=== PATIENT | male | born 1935 | race Caucasian/White ===

== ENCOUNTER 2017-11-07 11:30 | Emergency (ER) | payer MEDICARE, OTHER ==
[~2017-11-07] VITALS: Ht 167.6 cm; Wt 61.7 kg
[~2017-11-07 11:30] MED LIST: ADVAIR; ALBUTEROL; ASPIRIN EC325 M1; CLONIDINE0.1; FINASTERIDE5 MG; GEMFIBROZIL 60600 MG; HYZAAR 100-251 EACH; NASAL SPRAY; NIASPAN ER 101000 M1; OMEPRAZOLE 20 M20 M1
[2017-11-07] MEDS ORDERED: ZANTAC 150MG T150 MG PO (11:47)
[2017-11-07] MEDS ORDERED: MEDROLDOSEPACK PO (12:42)
[2017-11-07] MEDS ORDERED: ULTRAM 50MG TAB50 MG PO (12:42)
[2017-11-07 13:19] VITALS: BP 150/53
== END 2017-11-07 13:20 | disposition home or self-care (01) ==
LOC: M.ERS 11:30
DX: M51.16 Intervertebral disc disorders with radiculopathy, lumbar region (principal); I10 Essential (primary) hypertension; J44.9 Chronic obstructive pulmonary disease, unspecified; K21.9 Gastro-esophageal reflux disease without esophagitis; Z91.040 Latex allergy status

== ENCOUNTER 2018-09-09 18:06 | Emergency (ER) | payer MEDICARE, OTHER ==
[~2018-09-09] VITALS: Ht 167.6 cm; Wt 64.6 kg
[~2018-09-09 18:06] MED LIST changes: +MEDROLDOSEPACK PO; +ULTRAM 50MG TAB50 MG PO; +ZANTAC 150MG T150 MG PO
[2018-09-09] MEDS ORDERED: EVOXAC30 MG PO (18:16)
[2018-09-09 18:35] LABS: ABSOLUTE BASOPHILS 0.1 thou/uL (0.0-0.2); ABSOLUTE EOSINOPHILS 0.1 thou/uL (0.0-0.7); ABSOLUTE LYMPHOCYTES 1.1 thou/uL (0.8-5.3); ABSOLUTE MONOCYTES 0.5 thou/uL (0.0-1.2); ABSOLUTE NEUTROPHILS 7.6 thou/uL (1.6-8.1); BASOPHILS 0.6 %; EOSINOPHILS 0.6 %; HEMATOCRIT 39.9 % (42.0-52.0); HEMOGLOBIN 13.8 gm/dL (14.0-18.0); LYMPHOCYTES 11.7 %; MCH 30.7 pg (26.0-34.0); MCHC 34.6 g/dL (28.0-37.0); MCV 88.6 fL (80.0-100.0); MPV 8.2 fl. (7.2-11.1); NUCLEATED RBCS 0 /100WBC; PLATELET COUNT* 262 thou/uL (150-400); POLYS 82.1 %; WBC 9.3 thou/uL (4.0-11.0)
[2018-09-09 18:43] LABS: APTT 25.1 Seconds (25.0-31.3); INR 0.9; PROTIME 9.6 Seconds (9.20-11.50)
[2018-09-09 18:53] LABS: ANION GAP 8 mmol/L (7-16); BUN 17 mg/dL (7-18); CALCIUM 8.8 mg/dL (8.5-10.1); CHLORIDE 104 mmol/L (98-107); CO2 28 mmol/L (21-32); CREATININE 1.2 mg/dL (0.6-1.3); GLUCOSE 116 mg/dL (70-99); POTASSIUM 4.1 mmol/L (3.5-5.1); SODIUM 140 mmol/L (136-145); TROPONIN-I LEVEL <0.06 ng/mL (<0.06)
[2018-09-09 18:56] LABS: ALBUMIN 3.7 g/dL (3.4-5.0); ALKALINE PHOSPHATASE 89 U/L (46-116); NT-PRO BRAIN NAT PEPTIDE 150 pg/mL (<300); SGOT 21 U/L (15-37); SGPT 25 U/L (30-65); TOTAL BILIRUBIN 0.4 mg/dL (<0.1-1.0); TOTAL PROTEIN 7.6 g/dL (6.4-8.2)
[2018-09-09 20:54] VITALS: BP 168/69
--- NOTE | 2018-09-10 12:08 | EKG ---
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: : 1935 Requested By: Alexandra Luna Order Number: [id number] MD: Mauricio Flor Measurements Intervals [place] Rate: 67 P: 6 W[place]: 202 QRS: 119 QRSD: 87 T: 137 QT: 366 QTc: 387 Interpretive Statements Sinus rhythm Right axis deviation Low voltage, extremity leads Abnormal T, consider ischemia, lateral leads Compared to ECG 11/07/2011 15:16:00 Right-axis deviation now present Low QRS voltage now present T-wave abnormality now present Possible ischemia now present Electronically Signed On 09-10-2018 12:07:47 CDT by Mauricio Flor [email or web address] <ELECTRONICALLY SIGNED> By: Mauricio Flor MD, FACC 09/10/18 1207 1814 181 Mauricio Flor MD, FAC /EPI
--- NOTE | 2018-09-12 14:06 | PATH ---
[address] [address] PATHOLOGY RPT PROCEDURE Name: LISA BRIDGES [id number] Admission: 09/09/18 Date of : 39 Discharge: 09/09/18 Report #: [id number] Path Case #: [id number] [facility] Accession Number: [id number] . 01 Material submitted: . gastrointestinal site - GE JUNCTION BIOPSY . 01 Clinical history: . None provided . 02 Diagnosis: GE junction biopsy: - Benign esophageal and gastric/columnar types mucosa with moderate chronic and active inflammation compatible with reflux, negative for goblet cells/diagnostic Kc's metaplasia, granulomas and dysplasia. (NELL:kale; 09/12/2018) MBR/09/12/2018 . 02 Electronically signed: . Vishal Fenton MD, Pathologist NPI- [id number] . 01 Gross description: . The specimen is received in formalin, labeled "Sarmad, Lisa, GE junction biopsy" and consists of 2 fragments of vines-kinsey tissue measuring 0.5 x 0.4 x 0.2 cm and 0.5 x 0.3 x 0.2 cm which are entirely submitted A1. (SDY; 09/11/2018) SYU/SYU . 02 Pathologist provided ICD-10: K21.9 . 02 CPT . 044621 Specimen Comment: A courtesy copy of this report has been sent to Specimen Comment: [phone], , . Specimen Comment: Report sent to ,DR STONE / DR MEYER Performed at: [address], [place], [place] [id number] MD Sky Jackson MD Phone: [phone] Performed at: [address] [address] [address] Antonio [place], [place] [id number] MD Vishal Fenton MD Phone: [phone]
== END 2018-09-09 20:54 | disposition still patient (30) ==
LOC: M.ERS 18:06 → M.GI 18:06
PROVIDERS: Nurse Practitioner Family
DX: T18.128A Food in esophagus causing other injury, initial encounter (principal); I10 Essential (primary) hypertension; J44.9 Chronic obstructive pulmonary disease, unspecified; K21.9 Gastro-esophageal reflux disease without esophagitis; E78.00 Pure hypercholesterolemia, unspecified; N40.0 Benign prostatic hyperplasia without lower urinary tract symptoms; Z91.040 Latex allergy status; X58.XXXA Exposure to other specified factors, initial encounter; Y93.89 Activity, other specified; Y92.89 Other specified places as the place of occurrence of the external cause; Y99.8 Other external cause status

== ENCOUNTER → 2019-02-08 | Outpatient (CLI) | payer MEDICARE, OTHER ==
[~2019-02-08] MED LIST changes: +EVOXAC30 MG PO
== END ==
LOC: M.RAD 12:56
DX: J44.9 Chronic obstructive pulmonary disease, unspecified (principal); Z87.09 Personal history of other diseases of the respiratory system

== ENCOUNTER → 2019-05-07 | Day surgery (SDC) | payer MEDICARE, OTHER ==
[~2019-05-07] MED LIST changes: +ARTIFICIAL TEAR1510 OPHTHALMIC; +BROVANA15 MCG/2 M INH; +BUDESONIDE0.25 MG/2 INH; +FLONASE 0.05%50 MCG NARES; +HYZAAR 50-12.51 EACH PO; +PROAIR RESPICL90 MCG INH; +ZANTAC 150MG T150 M1 PO
[2019-05-07 08:54] LABS: HEMATOCRIT 38.6 % (42.0-52.0); HEMOGLOBIN 13.2 gm/dL (14.0-18.0); MCHC 34.1 g/dL (28.0-37.0); MCV 90.8 fL (80.0-100.0); MPV 7.8 fl. (7.2-11.1); RBC 4.25 mil/uL (4.50-6.00); RDW-CV 12.9 % (10.5-14.5); WBC 6.2 thou/uL (4.0-11.0)
[2019-05-07 09:02] LABS: CREATININE 1.4 mg/dL (0.6-1.3); POTASSIUM 3.5 mmol/L (3.5-5.1)
[2019-05-07 09:15] LABS: ALBUMIN 3.8 g/dL (3.4-5.0); TOTAL BILIRUBIN 0.6 mg/dL (<0.1-1.0); TOTAL PROTEIN 7.4 g/dL (6.4-8.2)
--- NOTE | 2019-05-07 10:57 | EKG ---
[place] [address] ELECTROCARDIOGRAM REPORT Name: LISA BRIDGES Room: [facility]#: [id number] Admission: 05/07/19 Attend Phys: Miguel A Victoria MD Discharge: Date of : 39 Report #: [id number] THIS REPORT FOR: //name// 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 : 1935 Requested By: Miguel A Victoria Order Number: [id number] MD: Ketan Lee Measurements Intervals [place] Rate: 90 P: 75 [place]: 237 QRS: 68 QRSD: 85 T: QT: 364 QTc: 446 Interpretive Statements Sinus rhythm Prolonged [place] interval Borderline T wave abnormalities Compared to ECG 09/09/2018 18:14:52 First degree AV block now present Right-axis deviation no longer present Possible ischemia no longer present T-wave abnormality still present Electronically Signed On 05-07-2019 10:57:03 DEPUTY ASSESSOR by Ketan Lee [email or web address] <ELECTRONICALLY SIGNED> By: Ketan eLe MD, FACC 05/07/19 1057 0841 [id number] Ketan Lee MD, [facility] /EPI
== END | disposition home or self-care (01) ==
LOC: M.SUR 08:20
PROVIDERS: Internal Medicine Gastroenterology
DX: K22.2 Esophageal obstruction (principal); R13.19 Other dysphagia; K21.0 Gastro-esophageal reflux disease with esophagitis; K44.9 Diaphragmatic hernia without obstruction or gangrene; J44.9 Chronic obstructive pulmonary disease, unspecified; K21.9 Gastro-esophageal reflux disease without esophagitis; N18.9 Chronic kidney disease, unspecified; E78.5 Hyperlipidemia, unspecified; Z98.890 Other specified postprocedural states; Z87.891 Personal history of nicotine dependence; Z90.49 Acquired absence of other specified parts of digestive tract; Z79.899 Other long term (current) drug therapy; Z91.040 Latex allergy status

== ENCOUNTER 2020-01-27 18:42 | Emergency (ER) | payer MEDICARE, OTHER ==
[~2020-01-27] VITALS: Ht 167.6 cm; Wt 65.8 kg
[2020-01-27] MEDS ORDERED: PREDNISONE 20 M20 MG PO (19:11)
[2020-01-27] MEDS ORDERED: PEPCID20 MG PO (19:12)
[2020-01-27] MEDS ORDERED: CLARITIN10 MG PO (19:12)
[2020-01-27] MEDS ORDERED: BENADRYL25 MG PO (19:13)
[2020-01-27 19:30] VITALS: BP 165/66
== END 2020-01-27 19:32 | disposition home or self-care (01) ==
LOC: M.ERS 18:42
DX: L50.9 Urticaria, unspecified (principal); L53.9 Erythematous condition, unspecified; K21.9 Gastro-esophageal reflux disease without esophagitis; I10 Essential (primary) hypertension; J44.9 Chronic obstructive pulmonary disease, unspecified; N40.0 Benign prostatic hyperplasia without lower urinary tract symptoms; Z91.040 Latex allergy status; Z90.89 Acquired absence of other organs

== ENCOUNTER → 2020-05-26 | Outpatient (CLI) | payer MEDICARE, OTHER ==
[~2020-05-26] MED LIST changes: +BENADRYL25 MG PO; +CLARITIN10 MG PO; +PEPCID20 MG PO; +PREDNISONE 20 M20 MG PO
== END ==
LOC: M.RAD 11:27
PROVIDERS: ATTEND Family Medicine
DX: M47.814 Spondylosis without myelopathy or radiculopathy, thoracic region (principal); J20.9 Acute bronchitis, unspecified; R06.02 Shortness of breath

== ENCOUNTER 2021-07-19 09:24 | Inpatient (IN) | payer OTHER ==
[~2021-07-19] VITALS: Ht 167.6 cm; Wt 64.3 kg
[2021-07-19 09:38] VITALS: BP 137/73
[2021-07-19] MEDS ORDERED: NORVASC 2.5 MG2.5 M1 PO (09:44)
[2021-07-19] MEDS ORDERED: TESSALON PERLE100 MG PO (09:45)
[2021-07-19] MEDS ORDERED: HYDROCHLOROTH12.5 M2 PO (09:45)
[2021-07-19] MEDS ORDERED: CHILDREN'S ZYRT10 M1 PO (09:45)
[2021-07-19] MEDS ORDERED: HYDROXYZINE HCL25 M2 PO (09:46)
[2021-07-19 10:28] LABS: ABSOLUTE BASOPHILS 0.1 thou/uL (0.0-0.2); ABSOLUTE EOSINOPHILS 0.1 thou/uL (0.0-0.7); ABSOLUTE LYMPHOCYTES 2.4 thou/uL (0.8-5.3); ABSOLUTE MONOCYTES 1.2 thou/uL (0.0-1.2); ABSOLUTE NEUTROPHILS 8.4 thou/uL (1.6-8.1); BASOPHILS 0.6 %; HEMATOCRIT 38.3 % (42.0-52.0); HEMOGLOBIN 12.7 gm/dL (14.0-18.0); LYMPHOCYTES 19.6 %; MCH 29.1 pg (26.0-34.0); MCHC 33.2 g/dL (28.0-37.0); MCV 87.6 fL (80.0-100.0); MONOCYTES 9.6 %; MPV 7.9 fl. (7.2-11.1); NUCLEATED RBCS 0 /100WBC; PLATELET COUNT* 348 thou/uL (150-400); POLYS 69.2 %; RBC 4.37 mil/uL (4.50-6.00); RDW-CV 13.1 % (10.5-14.5); WBC 12.1 thou/uL (4.0-11.0)
[2021-07-19 10:32] LABS: CREATININE 1.6 mg/dL (0.6-1.3); POTASSIUM 3.5 mmol/L (3.5-5.1)
[2021-07-19 10:43] LABS: ALBUMIN 3.8 g/dL (3.4-5.0); TOTAL BILIRUBIN 0.4 mg/dL (<0.1-1.0); TOTAL PROTEIN 7.6 g/dL (6.4-8.2)
[2021-07-19 11:14] VITALS: BP 128/45
--- NOTE | 2021-07-19 11:27 | EKG ---
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 : 1935 Requested By: Thierry Verdugo Order Number: [id number] MD: Ketan Lee Measurements Intervals [place] Rate: 85 P: 41 [place]: 225 QRS: 81 QRSD: 83 T: 42 QT: 354 QTc: 421 Interpretive Statements Sinus rhythm nonspecific st segment changes Prolonged [place] interval Borderline right axis deviation Low voltage, precordial leads Compared to ECG 05/07/2019 08:41:28 Low QRS voltage now present Electronically Signed On 07-19-2021 11:27:09 MANAGER HUMAN RESOURCES by Ketan Lee [email or web address] <ELECTRONICALLY SIGNED> By: Ketan Lee MD, [facility] 07/19/21 1127 0939 0939 Ketan Lee MD, [facility] /EPI
[2021-07-19 11:29] LABS: URINE BILIRUBIN NEGATIVE (Negative); URINE BLOOD NEGATIVE (Negative); URINE CLARITY CLEAR; URINE COLOR YELLOW; URINE GLUCOSE-RANDOM NEGATIVE (Negative); URINE KETONES NEGATIVE (Negative); URINE LEUKOCYTES-REFLEX NEGATIVE (Negative); URINE NITRITE-REFLEX NEGATIVE (Negative); URINE PROTEIN TRACE (Negative); URINE UROBILINOGEN 0.2 E.U./dl (0.2-1.0)
[2021-07-19 11:56] VITALS: BP 137/46
[2021-07-19 12:00] VITALS: BP 129/43
[2021-07-19 12:05] VITALS: BP 133/42
[2021-07-19 12:15] VITALS: BP 128/45
[2021-07-19 12:40] LABS: APTT 21.8 Seconds (25.0-31.3); INR 0.9; PROTIME 9.6 Seconds (9.20-11.50)
== END 2021-07-19 12:40 | disposition short-term general hospital (02) | DRG 61 ==
LOC: M.ERS 09:24 → M.TBA-ER 11:01 → M.ICU 11:45
PROVIDERS: Family Medicine; ADMIT Internal Medicine; ATTEND Internal Medicine
PROC: 0BH17EZ Insertion of Endotracheal Airway into Trachea, Via Natural or Artificial Opening (ICD-10-PCS; principal; 2021-07-19)
PROC: 3E03317 Introduction of Other Thrombolytic into Peripheral Vein, Percutaneous Approach (ICD-10-PCS; principal; 2021-07-19)
PROC: 5A1935Z Respiratory Ventilation, Less than 24 Consecutive Hours (ICD-10-PCS; principal; 2021-07-19)
DX: I63.9 Cerebral infarction, unspecified (principal); J96.01 Acute respiratory failure with hypoxia; K21.9 Gastro-esophageal reflux disease without esophagitis; I10 Essential (primary) hypertension; J44.9 Chronic obstructive pulmonary disease, unspecified; Z98.42 Cataract extraction status, left eye; Z20.822 Contact with and (suspected) exposure to COVID-19; Z98.41 Cataract extraction status, right eye; Z91.040 Latex allergy status